=== PATIENT | male | born 1995 | race Caucasian/White ===

== ENCOUNTER 2018-03-27 21:10 | Emergency (ER) | payer BC, OTHER ==
--- NOTE | 2018-03-27 21:45 | EDM.PDOC ---
ED HPI GENERAL MEDICAL PROBLEM - General Chief Complaint: Flank Pain Stated Complaint: LT SIDE PAIN Time Seen by Provider: 03/27/18 21:18 Source of Information: Reports: Patient History Limitations: Reports: No Limitations - History of Present Illness INITIAL COMMENTS - FREE TEXT/NARRATIVE: AFTER 3 WEEK IN [employer] IN [facility], HAS BEEN BACK OF 1.5 WEEKS AND HAD NEW ONSET OF LEFT 8-9/10 FLANK PAIN WITH OUT HEMATURIA THIS BENJIE AT 2030, HE DOES REMEMBER BEING DEHYDRATED IN [facility], DENIES PREV HX KID STONES OR FEVER OR OTHER GI OR SYMPTOMS Onset: Today Onset Date: 03/27/18 Onset Time: 20:30 Location: Reports: Other (LEFT FLANK) Quality: Reports: Sharp Severity: Severe Improves with: Reports: Other (TIME - NOW 510) Worsens with: Reports: None Associated Symptoms: Reports: No Other Symptoms Treatments [employer]: Reports: Other (see below) (NONE) left side flank pain Pain Score (Numeric/FACES): 8 - Related Data Allergies Allergy/AdvReac Type Severity Reaction Status Date / Time No Known Allergies Allergy Verified 03/27/18 21:18 Home Meds: Home Meds NK [No Known Home Meds] 03/27/18 [History] Past Medical History - Past Health History Medical/Surgical History: Denies Medical/Surgical History Social & Family History - Family History Family Medical History: Noncontributory - Tobacco Use Smoking Status *Q: Current Every Day Smoker Years of Tobacco use: 1 Packs/Tins Daily: 0.1 - Caffeine Use Caffeine Use: Reports: Soda - Recreational Drug Use Recreational Drug Use: No ED ROS GENERAL - Review of Systems Review Of Systems: See Below Constitutional: Reports: No Symptoms HEENT: Reports: No Symptoms Respiratory: Reports: No Symptoms Cardiovascular: Reports: No Symptoms Endocrine: Reports: No Symptoms GI/Abdominal: Reports: No Symptoms : Reports: Other (LEFT FLANK PAIN) Musculoskeletal: Reports: No Symptoms Skin: Reports: No Symptoms Neurological: Reports: No Symptoms Psychiatric: Reports: No Symptoms Hematologic/Lymphatic: Reports: No Symptoms Immunologic: Reports: No Symptoms ED EXAM, RENAL/ - Physical Exam Exam: See Below Text/Narrative:: ALERT YOUNG MAN WITH MILD LEFT FLANK PAIN WITH PERCUSSION Exam Limited By: No Limitations General Appearance: Alert Eye Exam: Bilateral Eye: Normal Inspection Ears: Normal External Exam Nose: Normal Inspection Throat/Mouth: Normal Inspection Head: Atraumatic Neck: Normal Inspection Respiratory/Chest: No Accessory Muscle Use Cardiovascular: Normal Peripheral Pulses GI/Abdominal: Normal Bowel Sounds, Other (LEFT FLANK PAIN WITH PERCUSSSION) (Male) Exam: No Hernia Back Exam: CVA Tenderness (L) Extremities: Normal Inspection Neurological: Alert Psychiatric: Normal Affect Skin Exam: Warm Lymphatic: No Adenopathy Course - Vital Signs Last Recorded V/S: Last Vital Signs Temp 36.8 C 03/28/18 00:00 Pulse 65 03/28/18 00:00 Resp 18 03/28/18 00:00 BP 138/91 H 03/28/18 00:00 Pulse Ox 100 03/28/18 00:00 - Orders/Labs/Meds Orders: Active Orders 24 hr Category Date Time Status Abdomen Pelvis wo Cont [CT] Stat Exams 03/27/18 21:28 Taken Labs: Laboratory Tests 03/27/18 03/27/18 Range/Units 21:40 21:40 WBC 7.1 (4.5-12.0) X10-3/uL RBC 5.64 (4.30-5.75) x10(6)uL Hgb 15.0 (11.5-15.5) g/dL Hct 46.0 (30.0-51.3) % MCV 81.6 (80-96) fL MCH 26.6 L (27.7-33.6) pg MCHC 32.6 (32.2-35.4) g/dL RDW 12.5 (11.5-15.5) % Plt Count 334 (125-369) X10(3)uL MPV 7.2 L (7.4-10.4) fL Neut % (Auto) 48.8 (46-82) % Lymph % (Auto) 38.3 H (13-37) % Freestone % (Auto) 9.6 (4-12) % Eos % (Auto) 2 (1.0-5.0) % Baso % (Auto) 1 (0-2) % Neut # (Auto) 3.4 (1.6-8.3) # Lymph # (Auto) 2.7 (0.6-5.0) # Freestone # (Auto) 0.7 (0.0-1.3) # Eos # (Auto) 0.2 (0.0-0.8) # Baso # (Auto) 0.1 (0.0-0.2) # Sodium 137 (135-145) mmol/L Potassium 3.8 (3.5-5.3) mmol/L Chloride 102 (100-110) mmol/L Carbon Dioxide 26 (21-32) mmol/L BUN 16 (7-18) mg/dL Creatinine 1.0 (0.70-1.30) mg/dL Est Cr Clr Drug Dosing 118.63 mL/min Estimated GFR (MDRD) > 60 (>60) BUN/Creatinine Ratio 16.0 (9-20) Glucose 101 (80-116) mg/dL Calcium 9.0 (8.6-10.2) mg/dL Total Bilirubin 1.4 H (0.1-1.3) mg/dL AST 14 (5-25) IU/L ALT 25 (12-36) U/L Alkaline Phosphatase 102 (56-112) IU/L Total Protein 8.5 H (6.0-8.0) g/dL Albumin 4.4 (3.5-5.2) g/dL Globulin 4.1 g/dL Albumin/Globulin Ratio 1.1 Departure - Departure Time of Disposition: 23:25 Disposition: Home, Self-Care 01 Condition: Good Clinical Impression: Renal and ureteric calculus - Discharge Information *PRESCRIPTION DRUG MONITORING PROGRAM REVIEWED*: No *COPY OF PRESCRIPTION DRUG MONITORING REPORT IN PATIENT JONAS: No Instructions: Kidney Stones, [id number] Referrals: PCP,None [Primary Care Provider] - Forms: ED Department Discharge Additional Instructions: multiple left and right renal stone note in the kidneys, 3 mm stone noted in the left ureter most likely you will pass this stone use tylenol 1000 mg and ibuprofen 600 mg together eveyr 6 hours of pain and for breakthrough pain take Vicodin (hydrocodone) every 4-6 hours 1-2 tabs for more sever pain follow up with your MD next 3-5 days earlier if worse return to the Ed if you have too much pain, fever, vomiting and can't keep the pain meds down - My Orders Last 24 Hours: My Active Orders 03/27/18 21:28 Abdomen Pelvis wo Cont [CT] Stat - Assessment/Plan Last 24 Hours: My Active Orders 03/27/18 21:28 Abdomen Pelvis wo Cont [CT] Stat
[2018-03-27] MEDS ORDERED: Acetaminophen/HYDROcodone 325-5 MG Tab PO ONE (23:49)
== END 2018-03-28 | disposition home or self-care (01) ==
LOC: FB.ED 21:10
DX: N13.2 Hydronephrosis with renal and ureteral calculous obstruction (principal); F17.210 Nicotine dependence, cigarettes, uncomplicated
CPT/HCPCS: 36415; 74176; 80053; 85025; 99284; A9270